=== PATIENT | male | born 1950 | race American Indian/Alaskan Native ===

== ENCOUNTER 2017-01-03 13:47 | Outpatient (CLI) | payer MEDICARE ==
--- NOTE | 2017-01-03 16:00 | Magnetic Resonance Report ---
MRI of the lumbar spine. History: Low back pain. Procedure: Sagittal T1-weighted, T2-weighted, inversion coronal images, and axial T1 and T2-weighted images were used in the study. Findings: The L1-2, L2-3, and L3-4 levels are normal. At L4-5, there is a broad-based disc bulge with mild effacement of the anterior subarachnoid space and there is mild hypertrophy of the ligamentum flavum. This results in borderline central canal stenosis. The L5-S1 level is unremarkable. No bony signal normalities are seen. The conus is normal. Impression: Borderline central canal stenosis at L4-5 with broad-based disc bulge and mild ligamentum flavum hypertrophy.
== END 2017-01-03 13:48 | disposition home or self-care (01) ==
LOC: MRI 13:47
PROVIDERS: ATTEND Family Medicine
DX: M51.86 Other intervertebral disc disorders, lumbar region (principal); M24.28 Disorder of ligament, vertebrae; I48.91 Unspecified atrial fibrillation; I10 Essential (primary) hypertension; F17.200 Nicotine dependence, unspecified, uncomplicated
CPT/HCPCS: 72148

== ENCOUNTER 2017-08-14 21:29 | Emergency (ER) | payer MEDICARE ==
[2017-08-14 23:46] LABS: Basophils # (Auto) 0.1 K/mm3 (0.0-0.1); Basophils % (Auto) 0.7 % (0.0-1.8); Eosinophils # (Auto) 0.3 K/mm3 (0.0-0.4); Eosinophils % (Auto) 2.6 % (0.0-4.3); Hematocrit 49.1 % (35.5-45.6); Hemoglobin 16.1 gm/dl (11.8-15.2); Lymphocytes # (Auto) 2.8 K/mm3 (1.2-5.4); Lymphocytes % (Auto) 27.3 % (13.4-35.0); Mean Corpuscular HGB Conc 33 % (32-34); Mean Corpuscular Hemoglobin 29 pg (28-32); Mean Corpuscular Volume 88 fl (84-94); Monocytes # (Auto) 0.7 K/mm3 (0.0-0.8); Red Blood Count 5.59 M/mm3 (3.65-5.03); Red Cell Distribution Width 18.5 % (13.2-15.2)
[2017-08-15] LABS: Platelet Count 306 K/mm3 (140-440)
[2017-08-15 00:12] LABS: Albumin 4.5 g/dL (3.9-5); Calcium 8.7 mg/dL (8.4-10.2)
[2017-08-15 01:00] LABS: Bacteria,Urine 1+ /HPF (Negative); Bilirubin,Urine NEG (Negative); Blood,Urine LG (Negative); Color,Urine Red (Yellow); Nitrite,Urine NEG (Negative); Urobilinogen,Urine < 2.0 mg/dL (<2.0)
[2017-08-15 01:23] LABS: RBC,Urine > 182.0 /HPF (0.0-6.0)
[2017-08-15] MEDS ORDERED: DILAUDID IV ONE (01:42)
--- NOTE | 2017-08-15 01:45 | Emergency Department Report ---
ED Abdominal Pain HPI - General Chief Complaint: Abdominal Pain Stated Complaint: LEFT SIDE PAIN/BLOOD IN URINE Time Seen by Provider: 08/15/17 01:41 Source: patient Mode of arrival: Ambulatory Limitations: No Limitations - History of Present Illness Initial Comments: Patient is a 67-year-old gentleman presents to emergency room with complaints of abdominal pain 4 months patient states that the abdominal pain is constant and never changes. Patient states she has seen multiple gastroenterologists and has had multiple studies and endoscopies and colonoscopies and all have been negative. Patient states he's had multiple CT scans and MRIs and those also have been negative. Patient denies fever and chills. Patient denies chest pain shortness of breath. Patient states today he started urinating blood. Patient denies dysuria. She denies frequency. MD Complaint: abdominal pain -: Gradual, month(s) (4 months) Location: LL Radiation: none Migration to: no migration Severity: severe Severity scale (0 -10): 10 Quality: stabbing, aching Consistency: constant Improves With: rest Worsens With: movement Associated Symptoms: denies other symptoms, other (denies except for blood in urine) - Related Data Home Medications Medication Instructions Recorded Confirmed Last Taken RX: Doxazosin Mesylate [Cardura] 8 mg PO DAILY 02/10/14 06/14/15 06/13/15 8 MG Apixaban [Eliquis] 0 mg PO BID 06/14/15 06/14/15 06/13/15 0 MG Lisinopril [Zestril] 20 mg PO QDAY 06/14/15 06/14/15 06/13/15 20 MG Primidone [Mysoline] 50 mg PO QDAY 06/14/15 06/14/15 06/13/15 50 MG Previous Rx's Medication Instructions Recorded Last Taken Type Promethazine [Phenergan TAB] 25 mg PO Q6HR PRN #10 tab 06/14/15 Unknown Rx oxyCODONE /ACETAMINOPHEN [Percocet 1 tab PO Q6HR PRN #20 tablet 06/14/15 Unknown Rx 5/325] Acetaminophen/Codeine [Tylenol 1 tab PO Q6H PRN #12 tab 08/15/17 Unknown Rx /Codeine # 3 tab] Ciprofloxacin HCl [Cipro] 500 mg PO BID 10 Days #20 tablet 08/15/17 Unknown Rx Allergies Allergy/AdvReac Type Severity Reaction Status Date / Time ibuprofen Allergy Nausea Verified 02/10/14 15:46 procaine HCl [From Novocain] Allergy Swelling Verified 02/10/14 15:46 ED Review of Systems ROS: Stated complaint: LEFT SIDE PAIN/BLOOD IN URINE Other details as noted in HPI Comment: All other systems reviewed and negative Constitutional: denies: chills, fever Eyes: denies: eye pain, eye discharge, vision change ENT: denies: ear pain, throat pain Respiratory: denies: cough, shortness of breath, wheezing Cardiovascular: denies: chest pain, palpitations Endocrine: no symptoms reported Gastrointestinal: abdominal pain. denies: nausea, diarrhea Genitourinary: denies: urgency, dysuria Musculoskeletal: denies: back pain, joint swelling, arthralgia Skin: denies: rash, lesions Neurological: denies: headache, weakness, paresthesias Psychiatric: denies: anxiety, depression Hematological/Lymphatic: denies: easy bleeding, easy bruising ED Past Medical Hx - Past Medical History Previous Medical History?: Yes Hx Hypertension: Yes Additional medical history: Parkinson's, a-fib - Surgical History Past Surgical History?: Yes Hx Appendectomy: Yes Additional Surgical History: bone spur removal (neck). hernia x 2 - Family History Family history: hypertension - Social History Smoking Status: Current Every Day Smoker Substance Use Type: None - Medications Home Medications: Home Medications Medication Instructions Recorded Confirmed Last Taken Type RX: Doxazosin Mesylate [Cardura] 8 mg PO DAILY 02/10/14 06/14/15 06/13/15 History 8 MG Apixaban [Eliquis] 0 mg PO BID 06/14/15 06/14/15 06/13/15 History 0 MG Lisinopril [Zestril] 20 mg PO QDAY 06/14/15 06/14/15 06/13/15 History 20 MG Primidone [Mysoline] 50 mg PO QDAY 06/14/15 06/14/15 06/13/15 History 50 MG Promethazine [Phenergan TAB] 25 mg PO Q6HR PRN #10 tab 06/14/15 Unknown Rx oxyCODONE /ACETAMINOPHEN [Percocet 1 tab PO Q6HR PRN #20 tablet 06/14/15 Unknown Rx 5/325] Acetaminophen/Codeine [Tylenol 1 tab PO Q6H PRN #12 tab 08/15/17 Unknown Rx /Codeine # 3 tab] Ciprofloxacin HCl [Cipro] 500 mg PO BID 10 Days #20 tablet 08/15/17 Unknown Rx ED Physical Exam - General Limitations: No Limitations General appearance: alert, in no apparent distress - Head Head exam: Present: atraumatic, normocephalic - Eye Eye exam: Present: normal appearance - ENT ENT exam: Present: mucous membranes moist - Neck Neck exam: Present: normal inspection - Respiratory Respiratory exam: Present: normal lung sounds bilaterally. Absent: respiratory distress - Cardiovascular Cardiovascular Exam: Present: regular rate, normal rhythm. Absent: systolic murmur, diastolic murmur, rubs, gallop - GI/Abdominal GI/Abdominal exam: Present: soft, tenderness (left lower quadrant tenderness to palpation), normal bowel sounds - Rectal Rectal exam: Present: normal inspection, normal rectal tone, heme (-) stool, prostate tenderness, prostate enlargement - Extremities Exam Extremities exam: Present: normal inspection - Back Exam Back exam: Present: normal inspection - Neurological Exam Neurological exam: Present: alert, oriented X3 - Psychiatric Psychiatric exam: Present: normal affect, normal mood - Skin Skin exam: Present: warm, dry, intact, normal color. Absent: rash ED Course Vital Signs 08/14/17 08/15/17 08/15/17 23:11 00:42 01:00 Temperature 98.3 F Pulse Rate 72 Respiratory 18 Rate Blood Pressure 143/94 166/91 O2 Sat by Pulse 99 99 99 Oximetry 08/15/17 08/15/17 08/15/17 01:30 02:00 02:31 Temperature Pulse Rate Respiratory Rate Blood Pressure 171/98 161/114 161/114 O2 Sat by Pulse 96 97 98 Oximetry 08/15/17 08/15/17 02:57 03:01 Temperature Pulse Rate Respiratory 16 Rate Blood Pressure 173/112 O2 Sat by Pulse 99 98 Oximetry - Reevaluation(s) Reevaluation #1: Discussed all lab results and diagnostic results with patient. Patient stable for discharge. Patient to take medications as directed. Patient to follow up with his PCP and specialist as directed. 08/15/17 03:00 ED Medical Decision Making - Lab Data Result diagrams: 08/14/17 23:25 08/14/17 23:25 - Radiology Data Radiology results: report reviewed No acute findings on ct abdomen - Medical Decision Making Patient is stable for discharge. All labs and diagnostics patient. Patient encouraged to follow up with primary care and specialist as soon as possible. Patient take meds as directed. - Differential Diagnosis ABD PAIN. UTI. PROSTATITIS. DIVERTICULITIS Critical care attestation.: If time is entered above; I have spent that time in minutes in the direct care of this critically ill patient, excluding procedure time. ED Disposition Clinical Impression: Abdominal pain, Prostatitis Disposition: TO HOME OR SELFCARE Is pt being admited?: No Does the pt Need Aspirin: No Condition: Stable Instructions: Prostatitis (ED), Acute Abdominal Pain (ED) Additional Instructions: Patient to follow-up with [facility] in 3-5 days. Patient to follow-up with urologist 3 5 days. Patient follow-up with contract mail carrier in 3-5 days. Patient to return to ER if condition worsens. Patient to increase water. Patient to take medications as directed. Patient to rest. Patient to take Tylenol OR ibuprofen when necessary for pain. Prescriptions: Acetaminophen/Codeine [Tylenol /Codeine # 3 tab] 1 tab PO Q6H PRN #12 tab PRN Reason: Pain Ciprofloxacin HCl [Cipro] 500 mg PO BID 10 Days #20 tablet Referrals: PRIMARY CARE, [Primary Care Provider] - 3-5 Days Time of Disposition: 03:22
--- NOTE | 2017-08-15 02:40 | Cat Scan Report ---
FINAL REPORT PROCEDURE: CT ABDOMEN PELVIS WO CON TECHNIQUE: Computerized axial tomography of the abdomen and pelvis was performed without intravenous contrast. This study is performed without intravascular contrast material and its sensitivity for abdominal and pelvic pathology, including neoplasms, inflammation, abscess, free fluid, thrombosis, arterial dissection and infarction, is reduced compared with a contrast enhanced study. HISTORY: abd pain LUQ PAIN X 5 MONTHS COMPARISON: No prior studies are available for comparison. FINDINGS: Visualized lower thorax: No significant abnormality. Liver: Normal size and attenuation. Spleen: Normal size and attenuation. Gallbladder and biliary system: Normal. Pancreas: Normal. Adrenals: Normal. Kidneys: There are no kidney stones or ureteral stones. There is no hydronephrosis. GI tract: There is no bowel obstruction, colitis or enteritis. There is a large amount of stool in the right colon and cecum..The appendix is not identified.. Lymph nodes and mesentery: Normal per. Vasculature: Normal. Bladder: Normal. Reproductive organs: Normal. Peritoneum: There is no ascites or free air, abscess or adenopathy.. Musculoskeletal structures: No significant abnormality. Other: None. IMPRESSION: There are no kidney stones or ureteral stones. There is no hydronephrosis. There is no bowel obstruction, colitis or enteritis. There is a large amount of stool in the right colon and cecum.. The appendix is not identified..There is no indirect evidence of appendicitis. There is no ascites or free air, abscess or adenopathy.. .
[2017-08-15 03:29] VITALS: BP 173/112
== END 2017-08-15 03:38 | disposition home or self-care (01) ==
LOC: ED 21:29
DX: N41.9 Inflammatory disease of prostate, unspecified (principal); I10 Essential (primary) hypertension; I48.91 Unspecified atrial fibrillation; G20 Parkinson's disease; Z90.49 Acquired absence of other specified parts of digestive tract; F17.200 Nicotine dependence, unspecified, uncomplicated
CPT/HCPCS: 36415; 74176; 80053; 81001; 85025; 96374; 99284; J1170

== ENCOUNTER 2019-05-25 07:29 | Day surgery (SDC) | payer MEDICARE ==
[2019-05-25] MEDS ORDERED: fentaNYL 100 MCG/2 ML INJ ONE (08:45)
[2019-05-25] MEDS ORDERED: LIDOCAINE MPF (2%) 20 MG/1 ML VIAL 5 ML ONE (08:45)
[2019-05-25] MEDS ORDERED: PROPOFOL 200 MG/20 ML VIAL IV ONE (08:45)
--- NOTE | 2019-05-25 08:46 | Anesthesia Consultation ---
Anesthesia Consult and Med Hx Date of service: 05/25/19 - Airway Anesthetic Teeth Evaluation: Dentures ROM Head & Neck: Adequate Mental/Hyoid Distance: Adequate Mallampati Class: Class II Intubation Access Assessment: Good - Pulmonary Exam CTA: Yes - Cardiac Exam Cardiac Exam: RRR - Pre-Operative Health Status ASA Pre-Surgery Classification: ASA3 Proposed Anesthetic Plan: General (Afib, HTN, ex smoker) - Pulmonary Hx Smoking: Yes (STOPPED X 1 YR (1/2 PPD X 40 YRS)) Hx Sleep Apnea: No (DOUGLAS PRE SCREEN HIGH RISK.) - Cardiovascular System Hx Hypertension: Yes (X 12 YRS) Hx Valvular Heart Disease: Yes - Other Systems Hx Substance Use: (HX CRACK COCAINE ABUSE/ CLEAN SINCE 2005) Hx Cancer: No
--- NOTE | 2019-05-25 08:47 | Anesthesia Day of Surgery ---
Anesthesia Day of Surgery - Day of Surgery Patient Examined: Yes Patient H&P Reviewed: Yes Patient is NPO: Yes
[2019-05-25] MEDS ORDERED: ONDANSETRON 4 MG/2 ML INJ IV PRN (08:48)
[2019-05-25] MEDS ORDERED: HYDROmorphone 1 MG/1 ML INJ IV PRN (08:48)
[2019-05-25] MEDS ORDERED: MIDAZOLAM 2 MG/2 ML INJ IV NR (09:00)
[2019-05-25] MEDS ORDERED: LACTATED RINGERS 1,000 ML IV SCH (09:00)
[2019-05-25 09:29] LABS: INR 1.04 (0.87-1.13)
[2019-05-25 09:31] LABS: Partial Thromboplastin Time 27.5 Sec. (24.2-36.6)
[2019-05-25] MEDS ORDERED: dexAMETHasone 20 MG/5 ML VIAL ONE (09:58)
[2019-05-25] MEDS ORDERED: ONDANSETRON 4 MG/2 ML INJ ONE (09:58)
[2019-05-25] MEDS ORDERED: WATER FOR IRRIG STERILE 2000 ML IR ONE (10:00)
[2019-05-25 11:27] VITALS: BP 148/82
[2019-05-25] MEDS ORDERED: ceFAZolin/STERILE WATER 2 GM/20 ML SYRINGE IV NR (12:00)
--- NOTE | 2019-05-25 12:06 | Post Operative Note ---
Date of procedure: 05/25/19 Pre-op diagnosis: cysto rezum Post-op diagnosis: same Findings: cysto rezum Anesthesia: GETA Surgeon: DENISSE STRONG Estimated blood loss: minimal Pathology: none Specimen disposition: to lab Condition: stable Disposition: PACU
--- NOTE | 2019-05-25 12:07 | Discharge Summary ---
Short Stay Discharge Plan Activity: other (no straining ) Weight Bearing Status: Full Weight Bearing Diet: low fat, low cholesterol, low salt Durable Medical Equipment Needed Upon Discharge: other (hendricks) Follow up with: MILY STORY MD [Primary Care Provider] - 7 Days DENISSE STRONG MD [Staff Physician] - 7 Days Forms: Outpatient Surgery DC Inst.
--- NOTE | 2019-05-25 13:12 | Operative Report ---
PREOPERATIVE DIAGNOSIS: Bladder outlet obstruction. POSTOPERATIVE DIAGNOSIS: Bladder outlet obstruction. PROCEDURES: Cystoscopy, Rezum procedure. SURGEON: Dr. Garcia. ANESTHESIA: General. FINDINGS: This is a gentleman with large prostate lateral lobes. He is a candidate for TURP, UroLift or Rezum. He watched the video now elects for the Rezum. His AUA symptom score is 17-20. DESCRIPTION OF PROCEDURE: The patient was brought to the operative room and placed on the operating table. Following induction of anesthesia, placed in lithotomy position, prepped and draped in usual sterile fashion. His bladder was 1-2+ trabeculated. There was no large middle lobe. Using the Rezum device, 2 sticks on the left and 2 sticks on the right were carried out. The patient tolerated the procedure well. No significant complication. A 20-Kiswahili coude catheter was placed and brought to recovery in stable condition. JOB# [id number] SONIA/LB
--- NOTE | 2019-05-25 13:33 | Post Anesthesia Evaluation ---
- Post Anesthesia Evaluation Patient Participated: Yes Airway Patent: Yes Stable Respiratory Function: Yes Nausea/Vomiting: No Pain Manageable: Yes Adequeate Hydration: Yes Anesthesia Complications: No Block Receding Appropriately: Not Applicable Patient on Ventilator: No
== END 2019-05-25 12:07 | disposition home or self-care (01) ==
LOC: OR 07:29
PROVIDERS: ATTEND Urology
DX: N32.0 Bladder-neck obstruction (principal); I48.92 Unspecified atrial flutter; I12.9 Hypertensive chronic kidney disease with stage 1 through stage 4 chronic kidney disease, or unspecified chronic kidney disease; N18.9 Chronic kidney disease, unspecified; M19.90 Unspecified osteoarthritis, unspecified site; Z79.899 Other long term (current) drug therapy; Z98.49 Cataract extraction status, unspecified eye; Z88.8 Allergy status to other drugs, medicaments and biological substances; Z79.82 Long term (current) use of aspirin; Z87.891 Personal history of nicotine dependence; Z98.890 Other specified postprocedural states; Z86.2 Personal history of diseases of the blood and blood-forming organs and certain disorders involving the immune mechanism
CPT/HCPCS: 36415; 53854; 84132; 85610; 85730; A4217; J1100; J1170; J2250; J2405; J2704; J3010; J7120